=== PATIENT | female | born 1945 | race Two or more races ===

== ENCOUNTER 2019-05-05 01:45 | Inpatient (IN) | payer MEDICARE, OTHER ==
[~2019-05-05] VITALS: Ht 160 cm; Wt 62.1 kg
--- NOTE | 2019-05-05 02:03 | NUR ---
BIBA FOR C/O WEAKNESS FOR THE PAST COUPLE DAYS. DENIED H/A OR WEAKNESS. + NAUSEA. PT W/ PAST SX OF R MASTECTOMY(2006) AND R BKA(2005) . PT W/ A F/C IN PLACE DRAINING DARK YELLOW URINE. VSS. WILL CONT TO MONITOR.
--- NOTE | 2019-05-05 02:08 | NUR ---
DR ZHOGN AT THE BED SIDE
[2019-05-05] MEDS ORDERED: ONDANSETRON HCL/PF - ER 4 MG/2 ML VIAL IV ONE (03:00)
--- NOTE | 2019-05-05 03:07 | NUR ---
F/C D/C'D PER MD'S ORDER. WILL OBSERVE THE PT FOR ABILITY TO URINATE.
[2019-05-05 03:15] LABS: BASOPHILS % (AUTO) 0.2 % (0.0-2.0); EOSINOPHILS % (AUTO) 0.7 % (0.0-6.0); HEMATOCRIT 33 % (33-45); HEMOGLOBIN 11.3 g/dL (11.5-14.8); LYMPHOCYTES # (AUTO) 0.8 /CMM (0.8-4.8); LYMPHOCYTES % (AUTO) 8.3 % (20.0-44.0); MEAN CORPUSCULAR HGB CONC 34 g/dl (31.0-36.0); MEAN CORPUSCULAR VOLUME 80 fL (82-100); MONOCYTES # (AUTO) 0.7 /CMM (0.1-1.30); MONOCYTES % (AUTO) 7.9 % (2.0-12.0); NEUTROPHILS # (AUTO) 7.5 /CMM (1.8-8.9); NEUTROPHILS % (AUTO) 82.9 % (43.0-81.0); PLATELET COUNT (AUTO) 299 /CMM (150-450); RED BLOOD CELL COUNT(AUTO) 4.12 MIL/uL (4.0-5.2)
[2019-05-05 03:39] LABS: CALCIUM, SERUM 8.8 mg/dL (8.5-10.1); CARBON DIOXIDE 17 mmol/L (21-32); CREATININE 0.5 mg/dL (0.6-1.3); GLUCOSE 140 mg/dL (74-106); POTASSIUM 4.9 mmol/L (3.5-5.1); UREA NITROGEN, BLOOD 17 mg/dL (7-18)
[2019-05-05 03:41] LABS: ALANINE AMINOTRANSFERASE 83 U/L (12-78); ALBUMIN 2.6 g/dL (3.4-5.0); ALKALINE PHOSPHATASE 436 U/L (46-116); ASPARTATE AMINOTRANSFERASE 65 U/L (15-37); BILIRUBIN,DIRECT 0.1 mg/dL (0.0-0.2)
[2019-05-05 03:42] LABS: CHLORIDE 80 mmol/L (98-107); SODIUM SERUM 114 mmol/L (136-145)
--- NOTE | 2019-05-05 03:47 | NUR ---
A NEW PIMENTEL CATH INSERTED AND URINE COLLECTED AND SENT TO THE LAB.
[2019-05-05] MEDS ORDERED: IV NS 0.9% 500 ML BAG IV ONE (04:00)
[2019-05-05 04:24] LABS: APPEARANCE,URINE CLEAR (CLEAR); BILIRUBIN,URINE NEGATIVE (NEGATIVE); BLOOD, URINE NEGATIVE Ery/uL (NEGATIVE); COLOR,URINE YELLOW (YELLOW); KETONES,URINE 1+ (NEGATIVE); LEUKOCYTE ESTERASE ,URINE NEGATIVE (NEGATIVE); NITRITE, URINE NEGATIVE (NEGATIVE); PROTEIN,URINE NEGATIVE (NEGATIVE); UGLUCOSE NEGATIVE (NEGATIVE); UROBILINOGEN,URINE 0.2 EU/dL (0.2)
[2019-05-05 04:28] LABS: BACTERIA,URINE Few /HPF (None Seen); RBC,URINE 0-2 /HPF (0-2); SQUAMOUS EPITHELIAL CELL,UR Few /HPF (None Seen); WBC,URINE 0-2 /HPF (0-3)
[2019-05-05] MEDS ORDERED: MAGNESIUM HYDROXIDE 30 ML UDC PO PRN (04:30)
[2019-05-05] MEDS ORDERED: ONDANSETRON HCL/PF 4 MG/2 ML VIAL IVP PRN (04:30)
[2019-05-05] MEDS ORDERED: MAG HYDROX/AL HYDROX/SIMETH 30 ML UDC PO PRN (04:30)
[2019-05-05] MEDS ORDERED: Z GUARD REMEDY 2 OZ OINT TP PRN (04:30)
[2019-05-05] MEDS ORDERED: LEVO75TA7 PO (04:52)
[2019-05-05] MEDS ORDERED: LEVO500T75 PO (04:52)
--- NOTE | 2019-05-05 04:59 | NUR ---
REPORT GIVEN TO MARC
[2019-05-05] MEDS ORDERED: DONE10TA11 PO (05:00)
--- NOTE | 2019-05-05 05:07 | NUR ---
PT WAS TRANSFERRED TO 118-2 UNDER ACLS
[2019-05-05 05:50] VITALS: BP 128/77
--- NOTE | 2019-05-05 05:52 | NUR ---
RN NOTE RECEIVED PATIENT FROM ER VIA HANK, DX HYPONATREMIA, ALERT/ORIENTED X 3, LEFT WRIST 20 GAUGE INTACT, NO S/S OF INFECTION/INFILTRATION NOTED, PIMENTEL CATH IN PLACE AND INTACT, ROOM AIR, NO DISTRESS NOTED, SKIN PICTURES TAKEN, BELONGING'S LIST IS IN THE CHART, WILL CONTINUE TO MONITOR PATIENT
--- NOTE | 2019-05-05 07:30 | NUR ---
RN NOTES RECEIVED PATIENT IN BED, SOUNDLY ASLEEP, SON REQUEST TO KEEP HER STILL TO REST FOR A LITTLE- WILL FURTHER ASSESS IN A LITTLE WHILE. ON ROOM AIR, BREATHING UNLABORED AND SATING FINE. NO INDICATION OF PAIN OF ANY KIND NOTED AT THIS TIME. PATIENT SINUS RHYTHM ON THE MONITOR WITH HR ON THE 60'S. IV LINE ON THE L WRIST GB 20G IN PLACE AND INTACT, FLUSHING WELL. SON AT THE BEDSIDE, AND WAS ENCOURAGE TO CALL FOR HELP AND ASSISTANCE, VERBALIZE FEELINGS AND CONCERNS. SAFETY MEASURES OBSERVED AND MAINTAINED FOR THE PATIENT. CALL LIGHT PLACED WITHIN REACH, WILL CONTINUE TO MONITOR AND ANTICIPATE NEEDS OF PATIENT
[2019-05-05 08:00] VITALS: BP 129/73
[2019-05-05] MEDS ORDERED: GLYB2.5T4 PO (08:22)
[2019-05-05] MEDS: PANTOPRAZOLE 40 MG TABLET.DR PO SCH (09:01)
[2019-05-05] MEDS: ENOXAPARIN SODIUM 40 MG/0.4 ML DISP.SYRIN SQ SCH (09:02)
[2019-05-05] MEDS: IV NS 0.9% 1,000 ML IV PRN ×2 (09:02→22:31)
--- NOTE | 2019-05-05 10:33 | NUR ---
WOUND CARE CONSULT: PT PRESENTS WITH RASH TO PERINEUM AND BUTTOCKS, PRESENT ON ADMISSION. RECOMMENDATIONS MADE FOR SKIN CARE AND PROTECTION. RT BELOW KNEE AMPUTATION STUMP IS CLEAR. WILL SEE PRN. REYNA IN AGREEMENT WITH PLAN OF CARE. CURRENT JUNIOR SCORE IS 14. MARGARITO WALKER NOTED. Addendum: 05/05/19 at 1035 by RAYMOND SUN WNDNU Amended: Links added.
[2019-05-05 16:00] VITALS: BP 136/70
[2019-05-05 17:42] LABS: URINE SODIUM, RANDOM 14 mmol/l (40-220)
[2019-05-05] MEDS: CLOTRIMAZOLE 1% 15 GM TUBE TP SCH (17:56)
[2019-05-05] MEDS ORDERED: LEVOFLOXACIN 750 MG /D5W 150ML 750 MG in PREMIX 1 EA IV SCH (18:00)
[2019-05-05] MEDS: ACETAMINOPHEN 325 MG TABLET PO PRN (18:05)
[2019-05-05 18:14] LABS: OSMOLALITY,URINE 129 mOS/kg (340-1090)
--- NOTE | 2019-05-05 19:30 | NUR ---
RN NOTES ENDORSED PATIENT FOR CONTINUITY OF CARE. NOT ON ANY FORM OF DISTRESS. ALL NURSING NEEDS ATTENDED AND MET. SAFETY MEASURES OBSERVED AND MAINTAINED. CALL LIGHT WITHIN REACH
--- NOTE | 2019-05-05 19:30 | NUR ---
MS/RN NOTES RECEIVED PT. SITTING UP IN BED. PT. IS AWAKE, ALERT AND ORIENTED X2-3. BREATHING EVEN AND UNLABORED ON ROOM AIR. NO SOB, RESPIRATORY DISTRESS OR COMPLAINTS OF PAIN NOTED AT THIS TIME. PT. WITH LEFT WRIST 20 GAUGE PERIPHERAL IV PRESENT, PATENT AND INTACT ADMINISTERING TO PT. NS @ 100 ML/HR. SAFETY AND ASPIRATION PRECAUTIONS IMPLEMENTED AND IN PLACE. BED LOCKED AND IN LOWEST POSITION, SIDE RAILS UP X3, BED ALARM ON, CALL LIGHT WITHIN REACH, WILL CONTINUE TO MONITOR.
[2019-05-05 20:00] VITALS: BP 123/67
[2019-05-06 04:00] VITALS: BP 113/56
--- NOTE | 2019-05-06 06:29 | NUR ---
MS/RN NOTES PT. IS LYING IN BED RESTING. BREATHING EVEN AND UNLABORED ON ROOM AIR. NO SOB, RESPIRATORY DISTRESS OR COMPLAINTS OF PAIN NOTED AT THIS TIME AND THROUGHOUT SHIFT. PT. WITH LEFT WRIST 20 GAUGE PERIPHERAL IV PRESENT, PATENT AND INTACT ADMINISTERING TO PT. NS @ 100 ML/HR. ALL PT. NEEDS MET. SAFETY AND ASPIRATION PRECAUTIONS IMPLEMENTED AND IN PLACE. BED LOCKED AND IN LOWEST POSITION, SIDE RAILS UP X3, BED ALARM ON, CALL LIGHT WITHIN REACH, WILL ENDORSE TO DAYSHIFT NURSE FOR CONTINUITY OF CARE.
[2019-05-06 07:13] LABS: BASOPHILS % (AUTO) 0.2 % (0.0-2.0); EOSINOPHILS % (AUTO) 0.9 % (0.0-6.0); HEMATOCRIT 29 % (33-45); LYMPHOCYTES # (AUTO) 0.6 /CMM (0.8-4.8); LYMPHOCYTES % (AUTO) 10.2 % (20.0-44.0); MEAN CORPUSCULAR HGB CONC 34 g/dl (31.0-36.0); MEAN CORPUSCULAR VOLUME 81 fL (82-100); MONOCYTES # (AUTO) 0.5 /CMM (0.1-1.30); MONOCYTES % (AUTO) 8.1 % (2.0-12.0); NEUTROPHILS # (AUTO) 4.7 /CMM (1.8-8.9); NEUTROPHILS % (AUTO) 80.6 % (43.0-81.0); PLATELET COUNT (AUTO) 266 /CMM (150-450); RED BLOOD CELL COUNT(AUTO) 3.62 MIL/uL (4.0-5.2); WHITE BLOOD COUNT (AUTO) 5.8 K/uL (4.3-11.0)
[2019-05-06 07:18] LABS: CALCIUM, SERUM 8.2 mg/dL (8.5-10.1); CREATININE 0.6 mg/dL (0.6-1.3); PHOSPHORUS 2.7 mg/dL (2.5-4.9); POTASSIUM 3.7 mmol/L (3.5-5.1)
--- NOTE | 2019-05-06 07:25 | NUR ---
RN OPENING NOTES PT IS ASLEEP IN BED WITH EQUAL CHEST RISE AND FALL. NO OBVIOUS SIGNS OF DISTRESS NOTED AT THIS TIME. BED IS LOCKED AND IN LOWEST POSITION WITH CALL LIGHT IN REACH. IV IN LEFT WRIST 20 GAUGE RUNNING NS 100 ML/HR WILL CONTINUE TO MONITOR. REPORT RECEIVED FROM OPTICAL GLASS INSPECTOR RN.
[2019-05-06 07:26] LABS: MAGNESIUM 0.9 mg/dL (1.8-2.4)
[2019-05-06 07:36] LABS: THYROID STIMULATING HORMONE 4.365 uIU/mL (0.358-3.74); URIC ACID 6.8 mg/dL (2.6-7.2)
[2019-05-06 08:00] VITALS: BP 124/70
--- NOTE | 2019-05-06 08:00 | NUR ---
MAG CRITICAL LAB VALUE REPORTED TO HOSPITALIST ORDERS RECEIVED AND CARRIED OUT.
[2019-05-06] MEDS: PANTOPRAZOLE 40 MG TABLET.DR PO SCH (08:29)
[2019-05-06] MEDS: Magnesium 1GM/D5W 100ML PREMIX 100 ML IV SCH ×3 (09:11→11:27)
[2019-05-06] MEDS: ENOXAPARIN SODIUM 40 MG/0.4 ML DISP.SYRIN SQ SCH (09:12)
[2019-05-06] MEDS: CLOTRIMAZOLE 1% 15 GM TUBE TP SCH ×2 (09:13→17:28)
[2019-05-06] MEDS: IV NS 0.9% 1,000 ML IV PRN ×2 (10:40→22:51)
[2019-05-06] MEDS: ACETAMINOPHEN 325 MG TABLET PO PRN (13:53)
[2019-05-06 16:00] VITALS: BP 138/61
--- NOTE | 2019-05-06 18:43 | NUR ---
RN CLOSING NOTES PT IN BED ASLEEP IN HIGH CA POSITION WITH NS RUNNING AT 100 ML/HR. PT SHOWS NO OBVIOUS SIGNS OF PAIN OR DISTRESS NOTED AT PRESENT TIME. PT CONSUMED ABOUT 50% OF DINNER. 3 BAGS OPF MAG GIVEN TO REPLACE LOW MAGNESIUM LEVELS EARLIER ON THE SHIFT. WILL ENDORSE CONTINUATION OF CARE TO SCIENTIFIC SOFTWARE DEVELOPER RN.
[2019-05-06 20:00] VITALS: BP 126/57
[2019-05-07 04:00] VITALS: BP 107/58
--- NOTE | 2019-05-07 05:21 | NUR ---
RN NOTES PATIENT AWAKE IN BED, ALERT AND ORIENTED. VERBALLY ABLE TO COMMUNICATE NEEDS. IN NO APPARENT DISTRESS. BREATHING EVEN AND UNLABORED. NO PHYSICAL MANIFESTATION OF PAIN OR DISCOMFORT. NO SIGNIFICANT CHANGE OF CONDITION. KEPT CLEAN AND DRY. WILL ENDORSE TO NEXT SHIFT FOR CONTINUITY OF CARE
[2019-05-07 06:32] LABS: ALBUMIN 2.2 g/dL (3.4-5.0); BILIRUBIN,TOTAL 0.4 mg/dL (0.2-1.0); CALCIUM, SERUM 8.3 mg/dL (8.5-10.1); CREATININE 0.6 mg/dL (0.6-1.3); MAGNESIUM 1.3 mg/dL (1.8-2.4); PHOSPHORUS 2.5 mg/dL (2.5-4.9); POTASSIUM 3.5 mmol/L (3.5-5.1); TOTAL PROTEIN, SERUM 5.4 g/dL (6.4-8.2)
[2019-05-07 06:37] LABS: BASOPHILS % (AUTO) 0.5 % (0.0-2.0); EOSINOPHILS % (AUTO) 2.1 % (0.0-6.0); HEMATOCRIT 29 % (33-45); HEMOGLOBIN 9.8 g/dL (11.5-14.8); LYMPHOCYTES # (AUTO) 0.9 /CMM (0.8-4.8); MEAN CORPUSCULAR HGB CONC 33 g/dl (31.0-36.0); MEAN CORPUSCULAR VOLUME 82 fL (82-100); MONOCYTES # (AUTO) 0.4 /CMM (0.1-1.30); MONOCYTES % (AUTO) 8.7 % (2.0-12.0); NEUTROPHILS # (AUTO) 3.6 /CMM (1.8-8.9); NEUTROPHILS % (AUTO) 71.7 % (43.0-81.0); PLATELET COUNT (AUTO) 287 /CMM (150-450); RED BLOOD CELL COUNT(AUTO) 3.57 MIL/uL (4.0-5.2)
[2019-05-07 06:43] LABS: THYROID STIMULATING HORMONE 6.355 uIU/mL (0.358-3.74)
--- NOTE | 2019-05-07 07:25 | NUR ---
RN OPENING NOTES PT IS AWAKE AND STATES THAT SHE IS NOT HAVING ANY BREATHING DIFFICULTIES OR PAIN AT PRESENT TIME. REPORT RECEIVED FROM RETORT OPERATOR RN. BED IS LOCKED AND IN LOWEST POSITION WITH CALL LIGHT IN REACH. WILL CONTINUE TO MONITOR.
[2019-05-07 08:00] VITALS: BP 109/48
[2019-05-07] MEDS: PANTOPRAZOLE 40 MG TABLET.DR PO SCH (08:24)
[2019-05-07] MEDS: ENOXAPARIN SODIUM 40 MG/0.4 ML DISP.SYRIN SQ SCH (08:24)
[2019-05-07] MEDS: CLOTRIMAZOLE 1% 15 GM TUBE TP SCH ×2 (08:25→16:45)
[2019-05-07] MEDS: ACETAMINOPHEN 325 MG TABLET PO PRN (08:29)
[2019-05-07] MEDS ORDERED: LEVO750T21 PO (10:10)
[2019-05-07] MEDS ORDERED: LEVOTHYROXINE SODIUM 50 MCG TABLET PO SCH (10:30)
[2019-05-07] MEDS: Magnesium 1GM/D5W 100ML PREMIX 100 ML IV SCH ×2 (11:10→12:00)
--- NOTE | 2019-05-07 14:06 | NUR ---
NIUR NATH SPOKE WITH PT STATED OK NOT TO HAVE IV SINCE PO INTAKE INCREASING. ALSO STATED THAT IT IS FINE SHE WILL PLACE ORDERS FOR PO MAGNESIUM REPLACEMENT.
[2019-05-07 16:00] VITALS: BP 102/41
[2019-05-07] MEDS ORDERED: MAGNESIUM OXIDE 400 MG TABLET PO ONE (18:30)
--- NOTE | 2019-05-07 19:49 | NUR ---
RN CLOSING NOTES REPORT GIVEN TO SAXOPHONE ASSEMBLER RN FOR CONTINUATION OF CARE. PT DENIES ANY PAIN OR SOB AT PRESENT MOMENT. PT IS MORE ALERT TODAY AND PO INTAKE HAS INCREASED. CONTINUATION OF CARE ENDORSED TO SAXOPHONE ASSEMBLER RN.
[2019-05-07 20:00] VITALS: BP 123/54
[2019-05-07] MEDS ORDERED: LEVOFLOXACIN (750 MG) 750 MG TABLET PO SCH (20:00)
[2019-05-08 04:00] VITALS: BP 142/58
--- NOTE | 2019-05-08 05:46 | NUR ---
RN NOTES PATIENT IN BED WITH NO APPARENT DISTRESS, BREATHING EVEN AND UNLABORED. ON ROOM AIR TOLERATING WELL. NO COMPLAINT OF PAIN OR DISCOMFORT. S/P PIMENTEL CATH REMOVAL, BLADDER SCANNED AT 2200 WITH 68ML RESIDUAL. DIAPER A LITTLE MOIST BUT MOSTLY DRY. RELAYED RESULTS TO DR. NATH. AT 0400, BLADDER SCAN RESULTED IN 458ML. PATIENT REFUSED TO CHANGE OR INSERT STRAIGHT CATH ORDERED. ABDOMEN SOFT AND NON TENDER AND NON DISTENDED. KEPT OFFERING TO INSERT PIMENTEL AND PATIENT KEPT ON REFUSING. NOTED AT ABOUT 0500, DIAPER WAS MODERATELY WET. UNABLE TO CHANGE DIAPER THE PATIENT REFUSED TO BE TOUCHED. ASK CHARGE NURSE TO WITNESS. PATIENT IS AT THIS TIME DISORIENTED. THOUGHT SHE IS LEFT OUTSIDE AND WANTS HER SON TO TAKE HER HOME. CALLED SON AND LEFT MESSAGE. VITAL SIGNS WNL. NO PHYSICAL MANIFESTATION OF PAIN. CONTINUOUS MONITORING DONE. WILL ENDORSE TO AM SHIFT FOR CONTINUITY OF CARE.
[2019-05-08 06:54] LABS: BASOPHILS % (AUTO) 0.5 % (0.0-2.0); EOSINOPHILS % (AUTO) 1.6 % (0.0-6.0); HEMATOCRIT 29 % (33-45); HEMOGLOBIN 9.8 g/dL (11.5-14.8); LYMPHOCYTES # (AUTO) 0.7 /CMM (0.8-4.8); LYMPHOCYTES % (AUTO) 14.2 % (20.0-44.0); MEAN CORPUSCULAR HGB CONC 34 g/dl (31.0-36.0); MEAN CORPUSCULAR VOLUME 82 fL (82-100); MONOCYTES # (AUTO) 0.4 /CMM (0.1-1.30); MONOCYTES % (AUTO) 7.1 % (2.0-12.0); NEUTROPHILS # (AUTO) 3.8 /CMM (1.8-8.9); NEUTROPHILS % (AUTO) 76.6 % (43.0-81.0); PLATELET COUNT (AUTO) 315 /CMM (150-450); RED BLOOD CELL COUNT(AUTO) 3.55 MIL/uL (4.0-5.2)
[2019-05-08 07:08] LABS: CALCIUM, SERUM 8.3 mg/dL (8.5-10.1); CREATININE 0.6 mg/dL (0.6-1.3); POTASSIUM 3.5 mmol/L (3.5-5.1)
--- NOTE | 2019-05-08 07:30 | NUR ---
initial PT IS AWAKE AND STATES THAT SHE IS NOT HAVING ANY BREATHING DIFFICULTIES OR PAIN AT PRESENT TIME. REPORT RECEIVED FROM COSTUMER ASSISTANT RN. BED IS LOCKED AND IN LOWEST POSITION WITH CALL LIGHT IN REACH. WILL CONTINUE TO MONITOR. LAB CALLED WITH MAGNESIUM OF MD RAMON AWARE
[2019-05-08 07:50] LABS: MAGNESIUM 1.2 mg/dL (1.8-2.4)
[2019-05-08 08:00] VITALS: BP 131/49
--- NOTE | 2019-05-08 08:15 | NUR ---
PT REFUSED IV PLACEMENT 4 GRAMS MAGNESIUM ORDERED MD RAMON AWARE
[2019-05-08] MEDS: PANTOPRAZOLE 40 MG TABLET.DR PO SCH (08:22)
[2019-05-08] MEDS: ENOXAPARIN SODIUM 40 MG/0.4 ML DISP.SYRIN SQ SCH (08:23)
[2019-05-08] MEDS: CLOTRIMAZOLE 1% 15 GM TUBE TP SCH ×2 (08:28→16:24)
--- NOTE | 2019-05-08 08:29 | NUR ---
pt does not want to eat or take po medication nor subq shot will call berenice lee
[2019-05-08] MEDS ORDERED: Magnesium 1GM/D5W 100ML PREMIX 100 ML IV SCH (08:30)
[2019-05-08] MEDS: MAGNESIUM OXIDE 400 MG TABLET PO SCH ×2 (09:00→12:37)
--- NOTE | 2019-05-08 10:25 | NUR ---
pt continues to refuse po medication of magnesium tablet and does not wnt to eat or drink as wwell
--- NOTE | 2019-05-08 11:41 | NUR ---
transfer rn report given to elvin from [facility] eta [id number]
--- NOTE | 2019-05-08 12:35 | NUR ---
BLADDER SCANNER REVEALED 625 ML IN AND OUT CATH DONE REMOVED 700 ML INADDDITION PT VOIDED. URINE SAMPLE SENT TO LAB
[2019-05-08 13:12] LABS: APPEARANCE,URINE CLEAR (CLEAR); BILIRUBIN,URINE NEGATIVE (NEGATIVE); BLOOD, URINE NEGATIVE Ery/uL (NEGATIVE); COLOR,URINE YELLOW (YELLOW); KETONES,URINE NEGATIVE (NEGATIVE); LEUKOCYTE ESTERASE ,URINE NEGATIVE (NEGATIVE); NITRITE, URINE NEGATIVE (NEGATIVE); PH,URINE 6.5 (5.0-8.0); PROTEIN,URINE NEGATIVE (NEGATIVE); UGLUCOSE NEGATIVE (NEGATIVE); UROBILINOGEN,URINE 0.2 EU/dL (0.2)
[2019-05-08 16:00] VITALS: BP_SYST 116; BP_SYST 146; BP_DIAS 46; BP_DIAS 48
--- NOTE | 2019-05-08 17:34 | NUR ---
CLOSING REPORT GIVEN TO ALLEY TENDER RN FOR CONTINUATION OF CARE. PT DENIES ANY PAIN OR SOB AT PRESENT MOMENT. PT IS MORE ALERT TODAY AND PO INTAKE HAS INCREASED. CONTINUATION OF CARE ENDORSED TO ALLEY TENDER RN. BED IN LOW POSITION
--- NOTE | 2019-05-08 18:02 | NUR ---
BLADDER SCAN BLADDER SCAN DONE 999ML MEASURED PLACED PIMENTEL 1000ML IN COLLECTION BAG NOTED.
--- NOTE | 2019-05-08 21:01 | NUR ---
MS-1/ANIMAL HUSBANDMAN PT REFUSING VITAL SIGNS AND PT CARE AT THIS TIME. NO DISTRESS NOTED. SIDE RAILS UP x3. BED IN LOWEST LOCKED POSITION. BED ALARM ACTIVATED.
[2019-05-09 04:00] VITALS: BP 115/65
--- NOTE | 2019-05-09 07:10 | NUR ---
MS RN OPENING NOTE RECEIVED REPORT FROM [facility] SHIFT NURSE. PT AWAKE IN BED, ALERT AND ORIENTED X 2, ON ROOM AIR, SATURATING WELL, NO SIGNS OF RESPIRATORY DISTRESS NOTED. PIMENTEL CATHETER DRAINING CLEAR, YELLOW URINE. BED IN LOW POSITION, LOCKED, CALL LIGHT WITHIN REACH.
[2019-05-09] MEDS: PANTOPRAZOLE 40 MG TABLET.DR PO SCH (07:40)
[2019-05-09 08:00] VITALS: BP 156/69
[2019-05-09] MEDS: MAGNESIUM OXIDE 400 MG TABLET PO SCH ×2 (08:23→16:34)
[2019-05-09] MEDS: ENOXAPARIN SODIUM 40 MG/0.4 ML DISP.SYRIN SQ SCH (08:25)
[2019-05-09 08:56] LABS: BASOPHILS % (AUTO) 0.9 % (0.0-2.0); EOSINOPHILS % (AUTO) 0.9 % (0.0-6.0); HEMATOCRIT 31 % (33-45); HEMOGLOBIN 10.2 g/dL (11.5-14.8); LYMPHOCYTES # (AUTO) 1.1 /CMM (0.8-4.8); LYMPHOCYTES % (AUTO) 19.4 % (20.0-44.0); MEAN CORPUSCULAR HGB CONC 33 g/dl (31.0-36.0); MEAN CORPUSCULAR VOLUME 83 fL (82-100); MONOCYTES # (AUTO) 0.3 /CMM (0.1-1.30); MONOCYTES % (AUTO) 6.4 % (2.0-12.0); NEUTROPHILS % (AUTO) 72.4 % (43.0-81.0); PLATELET COUNT (AUTO) 326 /CMM (150-450); RED BLOOD CELL COUNT(AUTO) 3.67 MIL/uL (4.0-5.2); WHITE BLOOD COUNT (AUTO) 5.5 K/uL (4.3-11.0)
[2019-05-09] MEDS: CLOTRIMAZOLE 1% 15 GM TUBE TP SCH ×2 (09:20→17:13)
[2019-05-09 09:35] LABS: ALBUMIN 2.5 g/dL (3.4-5.0); BILIRUBIN,TOTAL 0.4 mg/dL (0.2-1.0); CALCIUM, SERUM 8.4 mg/dL (8.5-10.1); CREATININE 0.7 mg/dL (0.6-1.3); PHOSPHORUS 2.7 mg/dL (2.5-4.9); POTASSIUM 3.9 mmol/L (3.5-5.1)
[2019-05-09 09:37] LABS: MAGNESIUM 1.1 mg/dL (1.8-2.4)
[2019-05-09] MEDS ORDERED: MAGNESIUM OXIDE 400 MG TABLET PO ONE (11:00)
[2019-05-09] MEDS ORDERED: MAGN400T6 PO (11:16)
[2019-05-09 12:00] VITALS: BP 142/71
[2019-05-09] MEDS: ACETAMINOPHEN 325 MG TABLET PO PRN (12:20)
[2019-05-09 16:00] VITALS: BP 111/64
--- NOTE | 2019-05-09 17:42 | NUR ---
CONTACTED ARMIDA NATH NP THROUGH [facility] TO OBTAIN ORDER FOR MIDLINE OR PICCLINE. AWAITING CALL BACK.
--- NOTE | 2019-05-09 18:25 | NUR ---
SPOKE WITH ARMIDA NATH CUSHION INSTALLER, OBTAINED ORDER FOR MIDLINE, ORDER PLACED, IV TEAM NOTIFIED- INSERTION WILL BE AROUND 9PM. WILL ENDORSE TO NOC SHIFT NURSE.
--- NOTE | 2019-05-09 19:53 | NUR ---
MS RN NOTE SPOKE TO FAUSTINO AT AFTER HOURS PHARM[facility], INFORMED HER THAT PATIENT MISSED THE 1700 DOSE OF IV CEFEPIME D/T NO IV ACCESS. PATIENT WILL HAVE MIDLINE PLACED AROUND 2100. ASKED IF SHE COULD RETIME THE MEDICATION, PHARMACY STATED, "ITS UP TO THE HOSPITAL TO DO THAT, JUST DOCUMENT THE REASON IT WAS NOT GIVEN."
[2019-05-09 20:00] VITALS: BP 135/77
--- NOTE | 2019-05-09 20:30 | NUR ---
MS RN NOTE SON LIDA PRESENT AT BEDSIDE, PLAN OF CARE AND GOALS DISCUSSED WITH FAMILY AND PATIENT AT BEDSIDE. BOTH VERBALIZE UNDERSTANDING.
--- NOTE | 2019-05-09 21:22 | NUR ---
MS RN NOTE CONFIRMED WITH RN CLERK SECRETARY, PATIENT NEEDS PICC LINE DUE TO [facility] ABX ADMINISTRATION FOR 6 WEEK PER ID ORDERS. MIDLINE INSERTION D/C'd AND PICC LINE ORDER PLACED. NIRU GREEN MADE AWARE.
--- NOTE | 2019-05-09 21:35 | NUR ---
MS RN NOTE CONSENT OBTAINED, GERA GAINSE DPOA SIGNED FOR PAPER, LIANA PICDeena RN AT BEDSIDE FOR PROCEDURE
[2019-05-09] MEDS ORDERED: DONEPEZIL 5 MG TABLET PO SCH (22:00)
[2019-05-10 04:00] VITALS: BP 114/57
[2019-05-10] MEDS: CEFEPIME 1 GM in IV D5W 50 ML IV SCH ×2 (05:55→06:24)
[2019-05-10 06:35] LABS: BASOPHILS % (AUTO) 0.6 % (0.0-2.0); EOSINOPHILS % (AUTO) 1.5 % (0.0-6.0); HEMATOCRIT 30 % (33-45); HEMOGLOBIN 9.9 g/dL (11.5-14.8); LYMPHOCYTES # (AUTO) 1.2 /CMM (0.8-4.8); LYMPHOCYTES % (AUTO) 15.8 % (20.0-44.0); MEAN CORPUSCULAR HGB CONC 33 g/dl (31.0-36.0); MEAN CORPUSCULAR VOLUME 83 fL (82-100); MONOCYTES # (AUTO) 0.5 /CMM (0.1-1.30); MONOCYTES % (AUTO) 6.1 % (2.0-12.0); NEUTROPHILS # (AUTO) 5.8 /CMM (1.8-8.9); PLATELET COUNT (AUTO) 319 /CMM (150-450); RED BLOOD CELL COUNT(AUTO) 3.59 MIL/uL (4.0-5.2); WHITE BLOOD COUNT (AUTO) 7.6 K/uL (4.3-11.0)
[2019-05-10 07:02] LABS: ALBUMIN 2.3 g/dL (3.4-5.0); BILIRUBIN,TOTAL 0.3 mg/dL (0.2-1.0); CALCIUM, SERUM 8.4 mg/dL (8.5-10.1); CREATININE 0.6 mg/dL (0.6-1.3); PHOSPHORUS 2.6 mg/dL (2.5-4.9); POTASSIUM 3.9 mmol/L (3.5-5.1)
[2019-05-10 07:10] LABS: MAGNESIUM 1.2 mg/dL (1.8-2.4)
--- NOTE | 2019-05-10 07:10 | NUR ---
RN INITIAL NOTE PATIENT IN BED, ASLEEP BUT EASILY AROUSABLE. ON ROOM AIR, NO COMPLAINS OF ANY SOB NOR PAIN AT THIS TIME. ALERT AND ORIENTED X2. FORGETFUL AT TIMES PER NOC SHIFT RN. HAS PIMENTEL, WITH CLEAR AND YELLOW URINE. HAS LEFT UA PICC, ON TKO. LAB CALLED, TALKED TO NOC SHIFT RN, AM DIAMOND IS 20.8, AND THIS IS NORMAL LEVEL PER LAB. POSSIBLE DC TODAY. PER SON, THEY ARE REQUESTING FOR A US ABD DUE TO PATIENT HAS NO BM FOR X10 DAYS. PATIENT ACCEPTED AT [facility]. BED LOCKED AND IN LOWEST POSITION. CALL LIGHT WITHIN REACH. WILL CONT TO MONITOR
--- NOTE | 2019-05-10 07:15 | NUR ---
MS RN NOTE LAB CALLED WITH CRIT MAG 1.2. ENDORSED TO AM FOR ROBERT. PATIENT DENIES SOB CHEST PAIN NO S/S OF DISTRESS. PATIENT DENIES PAIN/SOB/ WEAKNESS. PATIENT PICC PATENT AND INTACT. ENDORSED POC TO AM DO ROBERT. ALL CARE GIVEN ORDERED.
[2019-05-10] MEDS ORDERED: LEVOTHYROXINE SODIUM 75 MCG TABLET PO SCH (07:30)
[2019-05-10] MEDS: PANTOPRAZOLE 40 MG TABLET.DR PO SCH (08:10)
[2019-05-10] MEDS: ENOXAPARIN SODIUM 40 MG/0.4 ML DISP.SYRIN SQ SCH (08:19)
[2019-05-10] MEDS: CLOTRIMAZOLE 1% 15 GM TUBE TP SCH (08:43)
[2019-05-10] MEDS ORDERED: MAGNESIUM OXIDE 400 MG TABLET PO SCH (09:00)
[2019-05-10] MEDS ORDERED: CEFE2FRO IV (10:19)
--- NOTE | 2019-05-10 12:04 | NUR ---
RN NOTE ARMIDA AT BEDSIDE. NEW ORDER OF STAT KUB AND MIRALAX DUE TO UNABLE TO HAVE A BM FOR 10 DAYS PER FAMILY MEMBER. ABDOMEN NOT DISTENDED
[2019-05-10] MEDS ORDERED: POLYETHYLENE GLYCOL 3350 17 GM POWD.PACK PO ONE (12:30)
--- NOTE | 2019-05-10 13:30 | NUR ---
RN NOTE DC ORDERS FROM ARMIDA. TALKED TO ЕКАТЕРИНА ORR FROM [facility] TO GIVE REPORT. PER CM, PACKAGE LINER AT 1530. KUB RX STILL PENDING. SON, LIDA, AWARE OF THE TRANSFER
[2019-05-10] MEDS ORDERED: SENN1TAB77 PO (13:38)
[2019-05-10] MEDS ORDERED: NA PHOS,M-B/NA PHOS,DI-BA 1 EA ENEMA RC PRN (14:00)
[2019-05-10] MEDS ORDERED: GLYB2.5T4 PO (15:03)
--- NOTE | 2019-05-10 15:19 | NUR ---
RN NOTE SON AT BEDSIDE, CONCERNED ABOUT THE DC MEDS. TALKED TO ARMIDA, WILL CHANGE DC MEDS FAMILY'S REQUEST. ALSO, KUB SHOWS CONSTIPATION. ARMIDA AWARE, ORDERED [facility] FOR X30 DAYS
--- NOTE | 2019-05-10 16:17 | NUR ---
PEOPLESOFT DEVELOPER NOTE PATIENT LEFT VIA GURNEY PICKED UP BY MARIANN. PATIENT AWAKE AND ALERT. ON ROOM AIR. NO COMPLAINS OF ANY PAIN NOR SOB AT THIS TIME. VSS. PIMENTEL CATH EMPTIED WITH 700ML OUTPUT, CLEAR AND YELLOW. LEFT UA PICC INTACT PATENT AND SALINE FLUSHED. PATIENT GOING TO [facility]. ENEMA WAS GIVEN, ACCIDENTALLY THREW OUT THE BOX, SO I DID MANUAL BARCODE. LIDA, SON, IS AWARE AND WILL BE GOING TO [place] [place] TO FOLLOW THE PATIENT. LEFT A NOTE FOR THE RN EXTRACTOR OPERATOR SOLVENT PROCESS REGARDING THE MELATONIN AND PROBIOTIC THAT LIDA WAS ASKING.
[2019-05-10] MEDS ORDERED: CEFEPIME 2 GM in IV D5W 100 ML IV SCH (17:00)
== END 2019-05-10 16:15 | DRG 640 ==
LOC: ER 01:47 → TELE-TD 04:49 → MEDSG1 09:00
PROVIDERS: ADMIT Nurse Practitioner Acute Care; ATTEND Nurse Practitioner Acute Care
PROC: 05HY33Z Insertion of Infusion Device into Upper Vein, Percutaneous Approach (ICD-10-PCS; principal; 2019-05-09)
PROC: B54NZZA Ultrasonography of Left Upper Extremity Veins, Guidance (ICD-10-PCS; 2019-05-09)
DX: E87.1 Hypo-osmolality and hyponatremia (principal); G93.41 Metabolic encephalopathy; E44.0 Moderate protein-calorie malnutrition; M46.26 Osteomyelitis of vertebra, lumbar region; E86.0 Dehydration; E86.1 Hypovolemia; R79.89 Other specified abnormal findings of blood chemistry; R74.0 Nonspecific elevation of levels of transaminase and lactic acid dehydrogenase [LDH]; Z68.24 Body mass index [BMI] 24.0-24.9, adult; Z88.2 Allergy status to sulfonamides; E11.9 Type 2 diabetes mellitus without complications; Z86.73 Personal history of transient ischemic attack (TIA), and cerebral infarction without residual deficits; Z85.3 Personal history of malignant neoplasm of breast; Z89.511 Acquired absence of right leg below knee; K80.20 Calculus of gallbladder without cholecystitis without obstruction; F03.90 Unspecified dementia, unspecified severity, without behavioral disturbance, psychotic disturbance, mood disturbance, and anxiety; E83.42 Hypomagnesemia; D64.9 Anemia, unspecified; R33.9 Retention of urine, unspecified
CPT/HCPCS: 36415; 71045-TC; 74018; 76705-TC; 80048-TC; 80053-TC; 80061-TC; 80076-TC; 81000-TC; 82533; 82728-TC; 83540-TC; 83605-TC; 83735-TC; 83935-TC; 83970; 84100-TC; 84295-TC; 84300-TC; 84439-TC; 84443-TC; 84481; 84484-TC; 84550-TC; 85025-TC; 85730-TC; 87040-TC; 87081-TC; 87086-TC; 97530-TC; A4216; C1751; G0378; J0692; J1650; J1956; J2405; J3475; J7030; J7040; J7050; J7060

== ENCOUNTER 2019-06-25 12:34 | Outpatient (CLI) | payer MEDICARE ==
[~2019-06-25 12:34] MED LIST: CEFE2FRO IV; DONE10TA11 PO; GLYB2.5T4 PO; LEVO75TA7 PO; MAGN400T6 PO; SENN1TAB77 PO
== END 2019-06-25 23:59 | disposition home or self-care (01) ==
LOC: MRI 12:34
DX: M51.27 Other intervertebral disc displacement, lumbosacral region (principal); M48.07 Spinal stenosis, lumbosacral region; M46.26 Osteomyelitis of vertebra, lumbar region; M12.88 Other specific arthropathies, not elsewhere classified, other specified site
CPT/HCPCS: 72148-TC